=== PATIENT | male | born 1970 | race Two or more races ===

== ENCOUNTER 2024-11-11 16:31 | Emergency (ER) | payer OTHER ==
[~2024-11-11] VITALS: Ht 165.1 cm; Wt 80.7 kg
[2024-11-11 16:45] VITALS: TEMP 98.5
[2024-11-11 17:24] LABS: PLATELET COUNT (AUTO) 240 K/uL (150-450); RED BLOOD CELL COUNT(AUTO) 4.43 MIL/uL (4.5-6.0); RED CELL DISTRIBUTION WIDTH 12.7 % (11.5-15.0); WHITE BLOOD COUNT (AUTO) 4.0 K/uL (4.3-11.0)
[2024-11-11 17:34] LABS: CALCIUM, SERUM 8.5 mg/dL (8.5-10.1); CREATININE 1.0 mg/dL (0.6-1.3); SODIUM SERUM 137 mmol/L (136-145); UREA NITROGEN, BLOOD 12 mg/dL (7-18)
[2024-11-11] MEDS: LORAZEPAM INJ 2 MG/ML VIAL IV ONE (17:36)
[2024-11-11] MEDS: IV NS 0.9% 1,000 ML BAG IV ONE (17:37)
[2024-11-11] MEDS ORDERED: ALBUTEROL FS 2.5 MG/3 ML VIAL.NEB ONE (17:39)
[2024-11-11] MEDS ORDERED: IPRATROPIUM NEB FS 0.5 MG/2.5 ML AMPUL.NEB ONE (17:39)
[2024-11-11 17:44] VITALS: O2SAT 94
[2024-11-11] MEDS: IPRATROPIUM NEB FS 0.5 MG/2.5 ML AMPUL.NEB NEB ONE (17:44)
[2024-11-11] MEDS: ALBUTEROL FS 2.5 MG/3 ML VIAL.NEB NEB ONE (17:44)
[2024-11-11 17:47] LABS: NT-PRO BNP 19 pg/mL (0-125)
[2024-11-11 17:52] VITALS: O2SAT 98
[2024-11-11] MEDS ORDERED: ALBU18HF2 INH (18:12)
[2024-11-11] MEDS ORDERED: PRED20TA PO (18:12)
[2024-11-11 18:25] VITALS: BP 130/75; O2SAT 98
== END 2024-11-11 18:25 | disposition home or self-care (01) ==
LOC: ER 16:35
DX: J45.901 Unspecified asthma with (acute) exacerbation (principal); F41.0 Panic disorder [episodic paroxysmal anxiety]; F41.9 Anxiety disorder, unspecified; F32.A Depression, unspecified; Z79.52 Long term (current) use of systemic steroids; Z86.16 Personal history of COVID-19
CPT/HCPCS: 99285; 96374; 71045; 93005; 85025; 80048; 36415; 84484; 83880; 94640; J2919